=== PATIENT | male | born 1960 | race African-American/Black ===

== ENCOUNTER 2019-11-24 15:23 | Emergency (ER) | payer MEDICARE, MEDICAID ==
[~2019-11-24] VITALS: Ht 182.9 cm; Wt 70.0 kg
[2019-11-24] MEDS ORDERED: KETOROLAC 60MG/2ML VIAL IM ONE (16:45)
[2019-11-24 17:01] VITALS: BP 132/58
[2019-11-24] MEDS ORDERED: HYDROCODONE/ACETAMINOPHEN 5/325MG TABLET PO ONE (19:15)
[2019-11-24] MEDS ORDERED: ONDANSETRON 4MG ODT PO ONE (19:15)
== END 2019-11-24 20:25 | disposition home or self-care (01) ==
LOC: ER 15:23
DX: M54.5 Low back pain (principal); M25.562 Pain in left knee; I10 Essential (primary) hypertension
CPT/HCPCS: 72070; 72100; 73562; 73590; 96372; 99284; J1885; L1830; Q0162